=== PATIENT | male | born 1970 | race Caucasian/White ===

== ENCOUNTER 2018-11-10 17:49 | Day surgery (SDC) | payer BC ==
[~2018-11-10 17:49] MED LIST: Atropine Sulfate 1% Ophth Ointment 3.5 gm Tube ONE; Bupivacaine 0.75% 10 ML AMP ONE; CEFAZOLIN 1 GM VIAL ONE; Dexamethasone 20 MG/5 ML VIAL ONE; Glycopyrrolate 0.2 MG/ML 5 ML SYRINGE ONE; Lidocaine 1% PF 5 ML VIAL ONE; Lidocaine 4% PF 5 ML AMP ONE; Maxitrol 0.1% Opth Oint 3.5 GM TUBE ONE; Ondansetron PF 4 MG/2 ML Vial ONE; PHENYLEPHRINE-NS 100 MCG/ML 10 ML SYRINGE ONE; PROPOFOL 200 MG/20 ML VIAL ONE; Rocuronium Bromide 10 MG/ML (10ML VIAL) ONE; Triamcinolone 40 MG/ML VIAL ONE; ePHEDrine/0.9% NaCl/PF SYRINGE 50 mg/10 ml ONE
[2018-11-10] MEDS ORDERED: Phenylephrine 2.5% Ophth Soln 5 ML BOT FS SCH (18:02)
[2018-11-10] MEDS ORDERED: Fluorouracil 100 MG, Enoxaparin Sodium 25 MG, EPINEPHrine 0.3 MG in Ophthalmic Irrigati... IVPB SCH (18:02)
[2018-11-10] MEDS ORDERED: Cyclopentolate 1% Opth Drop 2 ML BOT FS SCH (18:02)
[2018-11-10] MEDS ORDERED: Cyclopentolate 1% Opth Drop 2 ML BOT ONE (18:11)
[2018-11-10] MEDS ORDERED: Phenylephrine 2.5% Ophth Soln 5 ML BOT ONE (18:11)
[2018-11-10] MEDS ORDERED: Fentanyl 100 MCG/2 ML VIAL ONE ×2 (18:19→18:41)
--- NOTE | 2018-11-11 02:06 | OP ---
DATE OF PROCEDURE: 11/10/2018 PREOPERATIVE DIAGNOSIS: Rhegmatogenous retinal detachment, right eye. POSTOPERATIVE DIAGNOSIS: Rhegmatogenous retinal detachment, right eye. PROCEDURES PERFORMED: Pars plana vitrectomy, scleral buckle complex retinal detachment repair, right eye. ANESTHESIA: General endotracheal anesthesia. DESCRIPTION OF PROCEDURE: The patient was identified in the preoperative holding area. Appropriate informed consent for planned surgical procedure on the right eye obtained. The patient was transported to the operative suite. Appropriate cardiopulmonary monitoring established. General endotracheal anesthesia was initiated. Retrobulbar block was placed. The eye was prepped and draped in usual sterile manner for ophthalmic surgery on the right eye. Lid speculum is placed on the right eye. A 360 conjunctival peritomy was created by sharp dissection with Delmis scissors. The rectus muscles were looped on 2-0 silk ties. A #42 band was encircled around the eye and ligated end-to-end with 3083 sleeve superotemporally. Buckle was fixated into the oblique quadrants using 5-0 Mersilene suture. Trocars were placed supratemporally, inferotemporally, superonasally. Infusion line was placed inferotemporally. Light pipe and vitreous cutter were inserted into the eye. Core vitrectomy was performed. Attention was turned to the inferior holes. Vitreous was carefully dissected away from the inferior holes. Drained retinotomy was created inferior to the nerve. Complete air-fluid exchange was performed with 10 minutes being allowed for fluid to drain posteriorly. 360 laser was placed using Endolaser delivery device. Silicone oil was infused into the eye. All sclerotomies were suture closed. Retrobulbar Kenalog and subconjunctival Ancef were placed. Atropine antibiotic ointment was placed. The eye was patched and shielded. The patient was advised to position on right or left side down. Followup appointment with Dr. Alex. Job ID: [id number]
== END 2018-11-10 22:26 | disposition home or self-care (01) ==
LOC: SDC 17:49
PROVIDERS: ATTEND Ophthalmology Retina Specialist
PROC: 08T43ZZ Resection of Right Vitreous, Percutaneous Approach (ICD-10-PCS; principal; 2018-11-10)
DX: H33.001 Unspecified retinal detachment with retinal break, right eye (principal)
CPT/HCPCS: C1814; J0131; J0171; J0690; J1100; J1650; J2001; J2405; J2704; J3010; J3301; J3490; J9190

== ENCOUNTER 2019-03-09 05:54 | Day surgery (SDC) | payer BC ==
[~2019-03-09 05:54] MED LIST changes: -Atropine Sulfate 1% Ophth Ointment 3.5 gm Tube ONE; -Bupivacaine 0.75% 10 ML AMP ONE; -CEFAZOLIN 1 GM VIAL ONE; -Dexamethasone 20 MG/5 ML VIAL ONE; +EPINEPHrine 0.3 MG in Ophthalmic Irrigation Solution 500 ML IVP SCH; -Glycopyrrolate 0.2 MG/ML 5 ML SYRINGE ONE; -Lidocaine 1% PF 5 ML VIAL ONE; -Lidocaine 4% PF 5 ML AMP ONE; -Maxitrol 0.1% Opth Oint 3.5 GM TUBE ONE; -Ondansetron PF 4 MG/2 ML Vial ONE; -PHENYLEPHRINE-NS 100 MCG/ML 10 ML SYRINGE ONE; -PROPOFOL 200 MG/20 ML VIAL ONE; -Rocuronium Bromide 10 MG/ML (10ML VIAL) ONE; -Triamcinolone 40 MG/ML VIAL ONE; -ePHEDrine/0.9% NaCl/PF SYRINGE 50 mg/10 ml ONE
[2019-03-09] MEDS ORDERED: Midazolam HCl 2 mg/2 ml Vial ONE (06:07)
[2019-03-09] MEDS ORDERED: Fentanyl 100 MCG/2 ML VIAL ONE (06:07)
[2019-03-09] MEDS ORDERED: PROPOFOL 20 ML ONE (06:07)
[2019-03-09] MEDS ORDERED: Cyclopentolate 1% Opth Drop 2 ML BOT ONE (06:17)
[2019-03-09] MEDS ORDERED: Phenylephrine 2.5% Ophth Soln 5 ML BOT ONE (06:17)
--- NOTE | 2019-03-09 09:35 | OP ---
DATE OF PROCEDURE: 03/09/2019 PREOPERATIVE DIAGNOSIS: Vitreous opacification, right eye. POSTOPERATIVE DIAGNOSIS: Vitreous opacification, right eye. PROCEDURE PERFORMED: Pars plana vitrectomy and membrane peel, right eye. ANESTHESIA: Local with monitored anesthesia care. COMPLICATIONS: None. DESCRIPTION OF PROCEDURE: The patient was identified in the preoperative holding area. Appropriate informed consent for the planned surgical procedure on the right eye had been obtained. The patient was transported to the operative suite, where appropriate cardiopulmonary monitoring was established. Local anesthesia was obtained using retrobulbar modified Van Lint lid block using 50:50 mixture of 4% lidocaine and 0.75% bupivacaine. The patient was prepped and draped in the usual sterile manner for ophthalmic surgery on the right eye. Lid speculum was placed in the right eye. A 25-gauge trocar was placed through the conjunctiva and sclera superotemporally, inferotemporally, and superonasally. Infusion line was placed inferotemporally. Light pipe and vitreous cutter were inserted into the eye. Core vitrectomy was performed. Viscous fluid removal device was inserted into the eye and silicone oil was removed. Light pipe was inserted into the eye. Residual silicone oil was identified and removed. Sclerotomy suture closed with 7-0 Vicryl suture and 6-0 plain gut suture. Retrobulbar Kenalog and subconjunctival Ancef were placed. Antibiotic ointment was placed and the eye was patched and shielded. The patient was taken to the postop recovery unit in good condition, having suffered no immediate perioperative complications. The patient was instructed to keep the patch and shield on, avoid lifting or bending, followup appointment with Dr. Alex. Job ID: [id number]
[2019-03-09] MEDS ORDERED: Maxitrol 0.1% Opth Oint 3.5 GM TUBE ONE (15:26)
[2019-03-09] MEDS ORDERED: Bupivacaine 0.75% 10 ML AMP ONE (15:26)
[2019-03-09] MEDS ORDERED: Lidocaine 4% PF 5 ML AMP ONE (15:26)
[2019-03-09] MEDS ORDERED: CEFAZOLIN 1 GM VIAL ONE (15:26)
[2019-03-09] MEDS ORDERED: Lidocaine 1% PF 5 ML VIAL ONE (15:26)
[2019-03-09] MEDS ORDERED: PROPOFOL 200 MG/20 ML VIAL ONE (15:26)
[2019-03-09] MEDS ORDERED: Triamcinolone 40 MG/ML VIAL ONE (15:26)
== END 2019-03-09 08:30 | disposition home or self-care (01) ==
LOC: SDC 05:54
PROVIDERS: ATTEND Ophthalmology Retina Specialist
PROC: 08NE3ZZ Release Right Retina, Percutaneous Approach (ICD-10-PCS; principal; 2019-03-09)
PROC: 08T43ZZ Resection of Right Vitreous, Percutaneous Approach (ICD-10-PCS; principal; 2019-03-09)
DX: H43.391 Other vitreous opacities, right eye (principal)
CPT/HCPCS: J0171; J0690; J2001; J2250; J2704; J3010; J3301; J3490